=== PATIENT | female | born 1965 | race African-American/Black ===

== ENCOUNTER 2018-06-19 22:00 | Emergency (ER) | payer MEDICAID ==
[~2018-06-19] VITALS: Ht 172.7 cm; Wt 90.0 kg
[2018-06-19 22:17] VITALS: BP 142/93
== END 2018-06-19 22:48 | disposition left against medical advice (07) ==
LOC: ER 22:00
DX: Z53.21 Procedure and treatment not carried out due to patient leaving prior to being seen by health care provider (principal)

== ENCOUNTER 2018-07-26 16:45 | Emergency (ER) | payer MEDICAID ==
[~2018-07-26] VITALS: Ht 172.7 cm; Wt 100.0 kg
[2018-07-26 17:21] VITALS: BP 145/83
== END 2018-07-27 03:07 | disposition left against medical advice (07) ==
LOC: ER 16:45
DX: R30.9 Painful micturition, unspecified (principal); Z53.21 Procedure and treatment not carried out due to patient leaving prior to being seen by health care provider